=== PATIENT | female | born 1965 | race Caucasian/White ===

== ENCOUNTER 2016-12-26 16:45 | Observation (INO) | payer OTHER ==
[~2016-12-26] VITALS: Ht 157.5 cm; Wt 71.7 kg
[~2016-12-26 16:45] MED LIST: BUSPIRONE HCL10 MG PO; CLARITIN10 MG PO; CYCLOBENZAPRINE10 MG PO; DICLOFENAC SODI75 MG PO; FLUTICASONE PRO16 GM NS; LASIX20 MG PO; LEVAQUIN750 MG PO; LIPITOR40 MG PO; NEURONTIN300 MG PO; NORCO 10-325 T1 EACH PO; PREDNISONE10 MG PO; PRINIVIL20 MG PO; PROAIR HFA8.5 GM IH
== END 2016-12-31 13:50 | disposition home or self-care (01) ==
LOC: ER 16:45 → MED 18:22
PROVIDERS: ADMIT Internal Medicine
DX: J44.1 Chronic obstructive pulmonary disease with (acute) exacerbation (principal); K59.00 Constipation, unspecified; J02.9 Acute pharyngitis, unspecified; R25.1 Tremor, unspecified; I10 Essential (primary) hypertension; G89.4 Chronic pain syndrome; F41.9 Anxiety disorder, unspecified; F32.9 Major depressive disorder, single episode, unspecified; Z87.891 Personal history of nicotine dependence; Z88.0 Allergy status to penicillin; Z88.1 Allergy status to other antibiotic agents; Z88.5 Allergy status to narcotic agent; Z88.8 Allergy status to other drugs, medicaments and biological substances; Z79.1 Long term (current) use of non-steroidal anti-inflammatories (NSAID); Z79.51 Long term (current) use of inhaled steroids; Z79.82 Long term (current) use of aspirin; Z79.899 Other long term (current) drug therapy; Z96.651 Presence of right artificial knee joint; Z98.51 Tubal ligation status; Z98.890 Other specified postprocedural states
CPT/HCPCS: 36415; 87502; 87651; 94640; 96365; 96366; 96372; 96376; G0378; J1650; J2920

== ENCOUNTER 2016-12-26 16:45 | Emergency (ER) | payer OTHER | END 2016-12-26 18:21 | disposition admitted as inpatient to this hospital (09) | LOC: ER 16:45 | DX: J44.1 Chronic obstructive pulmonary disease with (acute) exacerbation (principal); I10 Essential (primary) hypertension; E78.00 Pure hypercholesterolemia, unspecified; G43.909 Migraine, unspecified, not intractable, without status migrainosus; Z98.51 Tubal ligation status; Z87.891 Personal history of nicotine dependence; Z79.899 Other long term (current) drug therapy; Z88.0 Allergy status to penicillin; Z88.5 Allergy status to narcotic agent; Z88.6 Allergy status to analgesic agent; Z88.8 Allergy status to other drugs, medicaments and biological substances | CPT/HCPCS: 96374 ==

== ENCOUNTER 2017-01-02 18:01 | Emergency (ER) | payer OTHER | END 2017-01-02 21:21 | disposition critical access hospital (66) | LOC: ER 18:01 | DX: J44.1 Chronic obstructive pulmonary disease with (acute) exacerbation (principal); I10 Essential (primary) hypertension; E78.5 Hyperlipidemia, unspecified; F32.9 Major depressive disorder, single episode, unspecified; G43.909 Migraine, unspecified, not intractable, without status migrainosus; E66.9 Obesity, unspecified; Z98.51 Tubal ligation status; Z87.891 Personal history of nicotine dependence; Z79.899 Other long term (current) drug therapy; Z88.0 Allergy status to penicillin; Z88.5 Allergy status to narcotic agent; Z88.6 Allergy status to analgesic agent; Z88.8 Allergy status to other drugs, medicaments and biological substances | CPT/HCPCS: 96374; 96375 ==

== ENCOUNTER 2017-01-02 18:01 | Observation (INO) | payer OTHER ==
[~2017-01-02] VITALS: Ht 157.5 cm; Wt 70.8 kg
== END 2017-01-06 13:48 | disposition home or self-care (01) ==
LOC: ER 18:01 → MED 21:22
PROVIDERS: ADMIT Internal Medicine
DX: J44.1 Chronic obstructive pulmonary disease with (acute) exacerbation (principal); J40 Bronchitis, not specified as acute or chronic; F41.8 Other specified anxiety disorders; I10 Essential (primary) hypertension; G89.29 Other chronic pain; M54.9 Dorsalgia, unspecified; E78.5 Hyperlipidemia, unspecified; Z86.69 Personal history of other diseases of the nervous system and sense organs; Z79.82 Long term (current) use of aspirin; Z79.891 Long term (current) use of opiate analgesic; Z79.899 Other long term (current) drug therapy; Z98.51 Tubal ligation status; Z88.0 Allergy status to penicillin; Z88.6 Allergy status to analgesic agent; Z87.891 Personal history of nicotine dependence
CPT/HCPCS: 36415; 94640; 96365; 96366; 96374; 96375; 96376; G0378; J2060; Q9967